=== PATIENT | male | born 1970 | race Native Hawaiian/Other Pacific Islander ===

== ENCOUNTER 2016-09-04 03:13 | Emergency (ER) | payer OTHER ==
[~2016-09-04] VITALS: Ht 172.7 cm; Wt 68.0 kg
== END 2016-09-04 04:17 | disposition home or self-care (01) ==
LOC: ED 03:13
DX: H57.13 Ocular pain, bilateral (principal); H16.133 Photokeratitis, bilateral; W89.8XXA Exposure to other man-made visible and ultraviolet light, initial encounter; Y92.69 Other specified industrial and construction area as the place of occurrence of the external cause
CPT/HCPCS: 96372; 99283; J2175

== ENCOUNTER 2016-09-27 15:13 | Emergency (ER) | payer OTHER ==
[~2016-09-27] VITALS: Ht 172.7 cm; Wt 68.0 kg
== END 2016-09-27 17:35 | disposition home or self-care (01) ==
LOC: ED 15:13
DX: S00.212A Abrasion of left eyelid and periocular area, initial encounter (principal); S00.252A Superficial foreign body of left eyelid and periocular area, initial encounter
CPT/HCPCS: 99282

== ENCOUNTER 2017-05-05 14:36 | Emergency (ER) | payer OTHER ==
[~2017-05-05] VITALS: Ht 172.7 cm; Wt 68.0 kg
[2017-05-05 19:20] VITALS: BP 133/91; TEMP 98.3
== END 2017-05-05 19:22 | disposition home or self-care (01) ==
LOC: ED 14:36
DX: M47.896 Other spondylosis, lumbar region (principal)
CPT/HCPCS: 99283; J1885

== ENCOUNTER 2017-05-13 13:06 | Emergency (ER) | payer OTHER ==
[~2017-05-13] VITALS: Ht 172.7 cm; Wt 68.0 kg
[2017-05-13 13:45] VITALS: BP 127/81; TEMP 98.2
== END 2017-05-13 14:34 | disposition home or self-care (01) ==
LOC: ED 13:06
DX: K04.7 Periapical abscess without sinus (principal); L03.211 Cellulitis of face
CPT/HCPCS: 99282

== ENCOUNTER 2017-07-13 12:39 | Emergency (ER) | payer OTHER ==
[~2017-07-13] VITALS: Ht 170.2 cm; Wt 68.0 kg
[2017-07-13 13:42] LABS: PLATELET COUNT 416 K/uL (142-355)
[2017-07-13 13:52] LABS: POTASSIUM 4.3 mmol/L (3.6-5.2); SODIUM 134 mmol/L (136-145)
[2017-07-13 14:57] VITALS: BP 136/79; TEMP 98.3
== END 2017-07-13 14:58 | disposition home or self-care (01) ==
LOC: ED 12:39
DX: J18.9 Pneumonia, unspecified organism (principal)
CPT/HCPCS: 80053; 85027; 87804; 94640; 94664; 94760; 99283